=== PATIENT | female | born 1955 | race Caucasian/White ===

== ENCOUNTER → 2017-07-26 | Outpatient (CLI) | payer OTHER ==
[2017-07-26 17:30] LABS: CREATINE KINASE MB 0.36 ng/mL (<4.55)
[2017-07-26 17:38] LABS: TROPONIN I < 0.012 ng/mL
== END ==
LOC: LAB 16:47
PROVIDERS: ATTEND Physician Assistant Medical
DX: R68.84 Jaw pain (principal); R94.30 Abnormal result of cardiovascular function study, unspecified
CPT/HCPCS: 36415; 82550; 82553; 84484; 85379